=== PATIENT | female | born 1970 | race Caucasian/White ===

== ENCOUNTER 2023-09-13 11:54 | Outpatient (RCR) | payer BC, SELFPAY | END 2023-09-13 23:59 | disposition home or self-care (01) | LOC: RPT 11:54 | PROVIDERS: ATTENDING PHYSICIAN Internal Medicine; FAMILY PHYSICIAN Internal Medicine | DX: M25.552 Pain in left hip (principal); S32.058G Other fracture of fifth lumbar vertebra, subsequent encounter for fracture with delayed healing; Z73.6 Limitation of activities due to disability | CPT/HCPCS: 97110; 97163; 97535 ==

== ENCOUNTER 2023-10-03 16:04 | Outpatient (RCR) | payer BC, SELFPAY | END 2023-10-03 23:59 | disposition home or self-care (01) | LOC: RPT 16:04 | PROVIDERS: ATTENDING PHYSICIAN Internal Medicine; FAMILY PHYSICIAN Internal Medicine | DX: M25.552 Pain in left hip (principal); S32.058G Other fracture of fifth lumbar vertebra, subsequent encounter for fracture with delayed healing; Z73.6 Limitation of activities due to disability | CPT/HCPCS: 97110; 97112; 97535 ==

== ENCOUNTER 2023-10-07 11:12 | Emergency (ER) | payer BC, SELFPAY ==
[2023-10-07 11:16] VITALS: BP 165/97
--- NOTE | 2023-10-07 11:47 | ED.GENMED ---
History of Present Illness
General
Chief Complaint: Abdominal Pain
Source: patient
Time Seen by Provider: 10/07/23 11:37
Travel History
Have you had any contact with someone who has COVID-19?: No
Do you have any symptoms of coronavirus? Fever > 100 degrees, chills, cough, shortness of breath, sore throat, loss of taste or smell, muscle aches, or headache?: No
History of Present Illness
History of Present Illness:
53-year-old female with past medical history of breast cancer, currently undergoing chemotherapy with last treatment being 2 weeks ago, hypertension and GERD presenting to the emergency department for evaluation of lower abdominal pain that began on
Sunday described to be intermittently sharp but a constant pressure associated with abdominal distention and fullness sensation, persistent nausea and decreased p.o. intake. Patient states that upon starting her new chemo regimen she has been
feeling unwell and thought that her symptoms may be related but when symptoms persisted throughout the rest the weekend she decided come to the ER today. Patient also endorses some mild dysuria and bilateral flank pain with her after mentioned
symptoms. She denies any fevers, chills, rigors or any other concerns.
Past History
Past History
ED Past Medical History: Cancer, GERD and HTN
ED Past Surgical History: Gynecological and Orthopedic
Social History
Tobacco: Former smoker
Alcohol: Occasional
Drug: None
Personal:
Living: with family
Employment: Employed
Review of Systems
Review of Systems
All Other Systems: ROS reviewed and negative except as documented in HPI and ROS
Phy Exam
Physical Exam
Physical Exam:
GENERAL: Alert , in no apparent distress but does appear uncomfortable
EYE: clear conjunctiva b/l
HEAD: NCAT
ENT: o/p clr, mmm.
CARDIAC: Regular rate and rhythm .
LUNGS: Clear breath sounds bilaterally, no acute respiratory distress, no wheezes/rales/rhonchi
ABDOMEN: Somewhat firm, distended and diffusely tender but most pronounced within the lower abdomen, no r/g, no cvat
NEUROLOGICAL: Alert and oriented
SKIN: Warm and dry, skin intact.
MUSCULOSKELETAL: well perfused.
PSYCH: Normal and appropriate interaction.
Scores
Heart Failure Risk
Heart Failure Risk Score: Not Applicable
Heart Score for Chest Pain Patients
STEMI patient?: Not applicable
Withdrawal Assessment of Alcohol
Withdrawal Assessment Completed?: Not applicable
Course
Orders/Labs/Results
Orders:
Orders
10/07/23 11:46
CT Abd/pel W Iv And Oral Contr Urgent
Comment:
Reason For Exam: lower abd pain, hx breast cancer
Diphenhydramine [Benadryl] 50 mg IV NOW STA
Hydrocortisone Sod Succinate [Solu-Cortef] 200 mg IV NOW STA
Iohexol [Omnipaque] See Protocol PO NOW STA
10/07/23 11:51
Ketorolac [Toradol] 30 mg IV NOW STA
Ondansetron HCl [Zofran] 4 mg PO NOW STA
10/07/23 12:02
Complete Blood Count/With Diff Urgent
Comprehensive Metabolic Panel Urgent
Lipase Urgent
Urinalysis Reflex To Culture Urgent
Date Specimen was Collected: 10/07/23
Time Specimen was Collected: 11:54
Urine Microscopic Reflex Cult Urgent
10/07/23 12:08
Heparin Pf [Heparin Lock Flush] 500 unit .ROUTE .STK-MED ONE
10/07/23 12:18
Heparin Pf [Heparin Lock Flush] 500 unit IV NOW ONE
10/07/23 12:56
Heparin Pf [Heparin Lock Flush] 500 unit .ROUTE .STK-MED ONE
10/07/23 12:58
Heparin Pf [Heparin Lock Flush] 500 unit IV NOW ONE
10/07/23 13:12
Morphine Sulfate 4 mg IV NOW STA
Ondansetron Injectable [Zofran] 4 mg IV NOW STA
Abnormal Lab Results
10/07/23
12:02
WBC 2.2 L* 10^3/uL
(4.8-10.8)
RBC 3.04 L 10^6/uL
(4.20-5.40)
Hgb 9.8 L g/dL
(12.0-16.0)
Hct 28.9 L %
(37.0-47.0)
MCH 32.2 H pg
(27.0-31.0)
RDW 18.9 H %
(11.5-14.5)
Plt Count 87 L 10^3/uL
(130-400)
Absolute Lymphs (auto) 0.3 L 10^3/uL
(1.2-3.4)
Lymphocytes % 11.4 L %
(20.5-51.1)
Monocytes % 17.7 H %
(1.7-9.3)
Sodium 130 L mmol/L
(135-145)
Creatinine 0.5 L mg/dL
(0.6-1.0)
Glucose 109 H mg/dl
(70-99)
Calcium 8.2 L mg/dl
(8.4-10.2)
Total Bilirubin 2.4 H mg/dl
(0.2-1.3)
AST 230 H U/L
(14-36)
ALT 52 H U/L
(0-35)
Alkaline Phosphatase 357 H U/L
(38-126)
Total Protein 5.6 L g/dl
(6.3-8.2)
Albumin 2.8 L g/dl
(3.5-5.0)
Urine Ketones 1+ A
(Negative)
Urine Bilirubin 1+ A
(Negative)
Urine Urobilinogen 2+ A
(Neg - 1+)
Leukocyte Esterase Rfl Trace A
(Negative)
Urine Bacteria (Reflex) Few A
(Negative)
10/07/23 12:02
10/07/23 12:02
Vital Signs
Initial and Last Documented VS:
Initial Vital Signs
Temp Pulse Resp BP Pulse Ox
97.9 F 105 18 165/97 98
10/07/23 11:16 10/07/23 11:16 10/07/23 11:16 10/07/23 11:16 10/07/23 11:16
Last Documented Vital Signs
Temp Pulse Resp BP Pulse Ox
97.9 F 105 18 165/97 98
10/07/23 11:16 10/07/23 11:16 10/07/23 11:16 10/07/23 11:16 10/07/23 11:16
MDM/Problems Addressed
Differential Diagnosis Includes:
Cystitis, pyelonephritis, less concern for infected kidney stone, diverticulitis/colitis, appendicitis, pancreatitis
MDM/Problems Addressed:
53-year-old female presenting emergency department for evaluation of lower abdominal pain x 2 days, decreased p.o. intake and generally feeling unwell. Her exam does reveal a somewhat firm and distended abdomen which was significantly tender within
the lower portion of the abdomen. Will check labs, urine and CT imaging. Patient does have a IV contrast dye allergy but notes she has done fine with pretreatment for this in the past. Will treat pain with Toradol and nausea with Zofran.
*Radiology
Radiology exam reviewed: radiology read reviewed
*Critical Care Note
Total Time (30-74mins, 75-104mins- exclusive of procedures): Not Applicable
Comment
Comment:
1:15 p.m.: Patient states she had mild relief with Toradol although pain is still present. Additional 4 mg of morphine and 4 mg Zofran ordered for further pain control. Reviewed patient's lab work which shows a mild leukopenia and thrombocytopenia
which is related to her known cancer diagnosis and recent chemotherapy. Liver function tests are elevated which patient states she has had before although they do seem slightly higher today. This could be a potential cause for patient's GI related
symptoms today.
3:30 PM: CT findings as below:
IMPRESSION: Small bilateral pleural effusions.
Small nodules within the visualized lower lungs, suspicious for metastatic disease.
Interval development of a moderate to large amount of ascites. Splenomegaly has developed. Narrowing of the right portal vein, likely due to adjacent hepatic metastatic disease.
Morphologic appearance of the liver just above cirrhosis.
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
Extensive bony metastatic disease, which has progressed since examination of March 27, 2023.
Mild to moderate thickening of small bowel loops, mainly involving the duodenum and jejunum, and to lesser degree the ileum. Slight thickening of the wall the colon, greatest involving the right colon and the transverse colon. Could be on the basis
of edema and hypoproteinemia, but enteritis/colitis is also possible. There is no evidence for bowel obstruction or free intraperitoneal air.
Patient was aware of all of these metastatic findings. There is ascites however patient is afebrile, no leukocytosis and currently no suspicion for SBP. There was question for possible enteritis/colitis however patient is not having any diarrhea.
Her pain is much more manageable and I suspect her pain is likely related to the degree of metastatic disease. Patient already has arranged follow-up with her oncology team at [facility] for this coming Sunday. I encouraged her to contact them on
Sunday morning to see if she can get expedited follow-up. She does not have any prescribed pain medication for home use. Will prescribe a short-term course of Percocet to be used as needed. Patient is aware of return precautions to the emergency
department. She feels comfortable being discharged home.
ED Attending Note
-
Portions of this chart may have been created with voice recognition software.� Occasional wrong word or��sound alike� substitutions may have occurred due to the inherent limitations of voice recognition software.
Discharge Plan
Departure
Patient Disposition: Home (Routine Discharge)
Date of Disposition: 10/07/23
Time of Disposition: 15:29
Patient with high blood pressure during this ER visit?: Yes
Discharge Problem:
Abdominal pain, Malignant neoplasm of breast metastatic to liver, Malignant neoplasm of breast metastatic to lung
Instructions: Abdominal Pain
Prescriptions:
New
oxycodone-acetaminophen [Percocet] 5-325 mg tablet
1 tab PO Q4HPRN PRN (Reason: pain) Qty: 10 0RF
ondansetron 4 mg tablet,disintegrating
4 mg PO TID PRN (Reason: nausea and vomiting) Qty: 10 0RF
No Action
cetirizine 10 MG tablet
10 mg PO PRN PRN (Reason: allergies)
aspirin 81 mg Tablet,Delayed Release (Dr/Ec)
81 mg PO DAILY
ibuprofen 200 mg Tablet
400 mg PO Q6H PRN (Reason: pain)
diphenhydramine-acetaminophen [Tylenol PM Extra Strength] 25-500 mg Tablet
2 tab PO HS PRN (Reason: insomnia)
Referrals:
Elizabeth Tubbs MD [Family Provider] -
Interventions
Interventions:
*Risk Screen - Suicide Last Done: 10/07/23 11:20
*General Assessment Last Done: 10/07/23 11:20
*Neglect/Abuse Screening Last Done: 10/07/23 11:20
ED- Fall Risk Assessment Last Done: 10/07/23 12:11
*ED COVID-19 Vaccine History Last Done: 10/07/23 11:20
*Nursing Disposition Last Done: 10/07/23 15:43
OO-Yqxebx-Fjjarswpjb Assessment Last Done: 10/07/23 12:12
Discharge Date and Time
Discharge Date/Time: 10/07/23 15:57
[2023-10-07] MEDS: OMNIPAQUE 50 ML PO (11:59)
[2023-10-07] MEDS: ZOFRAN 4 MG PO (11:59)
[2023-10-07 12:07] LABS: Urine Albumin Trace (Neg - Trace); Urine Bilirubin 1+ (Negative); Urine Character Clear (Clear); Urine Color Amber; Urine Glucose Negative (Negative); Urine Ketone 1+ (Negative); Urine Leukocyte Trace (Negative); Urine Nitrite Negative (Negative); Urine Occult Blood Negative (Negative); Urine Urobilinogen 2+ (Neg - 1+)
[2023-10-07] MEDS: SOLU-CORTEF 200 MG IV (12:10)
[2023-10-07] MEDS: TORADOL 30 MG IV (12:10)
[2023-10-07 12:11] VITALS: BMI 28.3
[2023-10-07 12:24] LABS: Urine Mucus Many
[2023-10-07 12:25] LABS: Urine Squamous Cell 16-20 /LPF (Few); Urine Urothelial Cell 0-2 /LPF (FEW)
[2023-10-07 12:26] LABS: % Basophils 0.5 % (0-2); % Eosinophils 0.5 % (0-6); % Immature Granulocytes 0.5 % (0-0.5); % Lymphocytes 11.4 % (20.5-51.1); % Monocytes 17.7 % (1.7-9.3); % Neutrophils 69.4 % (42.2-75.2); Absolute Lymphocytes 0.3 10^3/uL (1.2-3.4); Absolute Monocytes 0.4 10^3/uL (0.1-0.6); Absolute Neutrophils 1.5 10^3/uL (1.4-6.5); Hematocrit 28.9 % (37.0-47.0); Hemoglobin 9.8 g/dL (12.0-16.0); Mean Corp Hgb Conc. 33.9 g/dL (33.0-37.0); Mean Corpuscular Hgb 32.2 pg (27.0-31.0); Mean Corpuscular Volume 95.1 fL (81.0-99.0); Nucleated Red Blood Cells % 0 %; Red Blood Cell Count 3.04 10^6/uL (4.20-5.40); Red Cell Dist. Width 18.9 % (11.5-14.5); Urine Bacteria Few (Negative); Urine Red Blood Cell 0-2 /HPF (0-2)
[2023-10-07 12:34] LABS: White Blood Cell Count 2.2 10^3/uL (4.8-10.8)
[2023-10-07 12:53] LABS: Platelet Count 87 10^3/uL (130-400)
[2023-10-07 12:54] LABS: Anisocytosis 1+; Normal RBC Morphology No; Polychromasia 1+
[2023-10-07 12:55] LABS: Acanthocytes FEW; Hypochromasia 2+; Ovalocytes 1+; Tear Drop Red Blood Cells 1+
[2023-10-07] MEDS: BENADRYL 50 MG IV (12:57)
[2023-10-07 12:58] LABS: ALT (SGPT) 52 U/L (0-35); AST (SGOT) 230 U/L (14-36); Albumin 2.8 g/dl (3.5-5.0); Alkaline Phosphatase 357 U/L (38-126); Blood Urea Nitrogen 13 mg/dl (7-17); Calcium 8.2 mg/dl (8.4-10.2); Carbon Dioxide 27 mmol/L (22-30); Chloride 101 mmol/L (98-107); Estimated Creatinine Clearance 113 ml/min; Glucose 109 mg/dl (70-99); Lipase 106 U/L (23-300); Potassium 3.6 mmol/L (3.5-5.1); Sodium 130 mmol/L (135-145); Total Bilirubin 2.4 mg/dl (0.2-1.3); Total Protein 5.6 g/dl (6.3-8.2); eGFR > 60.00
[2023-10-07] MEDS: MORPHINE SULFATE 4 MG IV (13:27)
[2023-10-07] MEDS: ZOFRAN 4 MG IV (13:27)
--- NOTE | 2023-10-07 15:53 | VATNOTE ---
Pt's port flushed with 500 units/5 mL heparin prior to deaccessing.
== END 2023-10-07 15:57 | disposition home or self-care (01) ==
LOC: EMR 11:12
PROVIDERS: Physician Assistant Medical; EMERGENCY PHYSICIAN Emergency Medicine; FAMILY PHYSICIAN Internal Medicine
DX: R10.9 Unspecified abdominal pain (principal); R14.0 Abdominal distension (gaseous); R10.30 Lower abdominal pain, unspecified; R11.0 Nausea; C50.919 Malignant neoplasm of unspecified site of unspecified female breast; C78.7 Secondary malignant neoplasm of liver and intrahepatic bile duct; C79.51 Secondary malignant neoplasm of bone; C78.00 Secondary malignant neoplasm of unspecified lung; K74.60 Unspecified cirrhosis of liver; I10 Essential (primary) hypertension; Z87.891 Personal history of nicotine dependence
CPT/HCPCS: 99285; 96374; 96375 ×5; 96376; 74177; 80053; 81003; 81015; 83690; 85025; Q9967

== ENCOUNTER → 2023-10-16 11:36 | Outpatient (REF) | payer BC, SELFPAY ==
[2023-10-16 12:45] LABS: % Basophils 0.2 % (0-2); % Immature Granulocytes 1.2 % (0-0.5); % Lymphocytes 2.6 % (20.5-51.1); % Monocytes 8.4 % (1.7-9.3); % Neutrophils 87.6 % (42.2-75.2); Absolute Immature Granulocytes 0.1 10^3/uL (0-0.05); Absolute Lymphocytes 0.2 10^3/uL (1.2-3.4); Absolute Monocytes 0.7 10^3/uL (0.1-0.6); Absolute Neutrophils 7.8 10^3/uL (1.4-6.5); Hematocrit 34.3 % (37.0-47.0); Hemoglobin 11.7 g/dL (12.0-16.0); Mean Corp Hgb Conc. 34.1 g/dL (33.0-37.0); Mean Corpuscular Hgb 32.2 pg (27.0-31.0); Mean Corpuscular Volume 94.5 fL (81.0-99.0); Nucleated Red Blood Cells % 0 %; Platelet Count 86 10^3/uL (130-400); Red Blood Cell Count 3.63 10^6/uL (4.20-5.40); Red Cell Dist. Width 21.8 % (11.5-14.5); White Blood Cell Count 8.9 10^3/uL (4.8-10.8)
[2023-10-16 12:58] LABS: INR 1.34; PT 16.4 Sec (11.4-14.6)
[2023-10-16 14:00] LABS: ALT (SGPT) 107 U/L (0-35); AST (SGOT) 311 U/L (14-36); Alkaline Phosphatase 448 U/L (38-126); Blood Urea Nitrogen 20 mg/dl (7-17); Calcium 7.4 mg/dl (8.4-10.2); Carbon Dioxide 22 mmol/L (22-30); Chloride 102 mmol/L (98-107); Glucose 100 mg/dl (70-99); Potassium 3.9 mmol/L (3.5-5.1); Sodium 129 mmol/L (135-145); Total Bilirubin 2.8 mg/dl (0.2-1.3); Total Protein 5.7 g/dl (6.3-8.2); eGFR > 60.00
== END ==
LOC: REG 11:36
PROVIDERS: ATTENDING PHYSICIAN Internal Medicine Hematology & Oncology
DX: C78.7 Secondary malignant neoplasm of liver and intrahepatic bile duct (principal)
CPT/HCPCS: 36415; 80053; 85025; 85610